=== PATIENT | male | born 1965 | race Caucasian/White ===

== ENCOUNTER 2022-02-06 12:18 | Emergency (ER) | payer MEDICAID ==
[~2022-02-06] VITALS: Ht 172.7 cm; Wt 85.0 kg
[2022-02-06 15:20] VITALS: BP 125/75
== END 2022-02-06 15:20 | disposition home or self-care (01) ==
LOC: EDBD 12:18 → ER 12:21
DX: F11.121 Opioid abuse with intoxication delirium (principal); E11.9 Type 2 diabetes mellitus without complications; I10 Essential (primary) hypertension
CPT/HCPCS: 93005